=== PATIENT | female | born 1995 | race Caucasian/White ===

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

== ENCOUNTER 2017-02-04 22:30 | Emergency (ER) | payer SELFPAY ==
[2017-02-04 23:06] VITALS: BP 115/82; PULSE 97; TEMP 98.1; O2SAT 99
--- NOTE | 2017-02-05 00:04 | C.PDOC ---
History Of Present Illness Patient is a 21 y/o female who presents to the ED with a complaint of a rash since 8pm tonight. Patient states this morning she ate and developed a rash shortly after. It resolved with Benadryl. The rash returned later in the day after she ate again with no relief from Benadryl prompting ED visit. Patient admits to similar episode approximately 5 months ago; denies any new foods, detergent, SOB, throat swelling, or difficulty breathing. No other physical complaints at this time. Time Seen by Provider: 02/04/17 23:06 Chief Complaint (Nursing): Allergic Reaction History Per: Patient History/Exam Limitations: no limitations Onset/Duration Of Symptoms: Hrs (initial rash upon awakening; second outbreak at 8pm) Current Symptoms Are (Timing): Still Present Home/EMS Treatment: Benadryl (treated both outbreaks ) Recent travel outside of the [place]: No Additional History Per: Patient Past Medical History Reviewed: Historical Data, Nursing Documentation, Vital Signs Vital Signs: Last Vital Signs Temp 98.1 F 02/04/17 23:02 Pulse 97 H 02/04/17 23:02 Resp 20 02/05/17 00:22 BP 115/82 02/04/17 23:02 Pulse Ox 99 02/05/17 00:22 - Medical History PMH: No Chronic Diseases Surgical History: No Surg Hx Family History: States: Unknown Family Hx - Social History Hx Alcohol Use: No Hx Substance Use: No - Immunization History Hx Tetanus Toxoid Vaccination: No Hx Influenza Vaccination: No Hx Pneumococcal Vaccination: No Review Of Systems Constitutional: Negative for: Fever, Chills ENT: Negative for: Throat Swelling Respiratory: Positive for: Other (no difficulty breathing). Negative for: Shortness of Breath Genitourinary: Negative for: Frequency (tolerating own secretion) Skin: Positive for: Rash Neurological: Negative for: Change in Speech Physical Exam - Physical Exam Appears: Well, Non-toxic, No Acute Distress, Other (speakign in full sentences , tolerating secretions) Skin: Warm, Dry, Rash (urticaria to abdomen) Head: Atraumatic, Normacephalic Eye(s): bilateral: Normal Inspection, EOMI Ear(s): Bilateral: Normal Nose: Normal Oral Mucosa: Moist Tongue: Normal Appearing, No Swelling Lips: Normal Appearing, No Swelling Throat: Normal, No Erythema, No Exudate, No Drooling Neck: Normal ROM, Supple Chest: Symmetrical Cardiovascular: Rhythm Regular Respiratory: Normal Breath Sounds, No Accessory Muscle Use Back: Normal Inspection, No CVA Tenderness Neurological/Psych: Oriented x3, Normal Speech, Normal Cognition, Other (no focal deficits) ED Course And Treatment O2 Sat by Pulse Oximetry: 99 (room air) Pulse Ox Interpretation: Normal Progress Note: Plan: Solumedrol and Pepcid administered. On re-evaluation, Patient is resting comfortably, tolerating PO, has no shortness of breath, has no intra-oral swelling, no stridor. Patient notes that pruritus has improved and does not want additional benadryl. Patient was advised to avoid potential allergens, and to follow up with physician in 1-2 days. Disposition - Disposition Referrals: [facility] at [facility] [Outside] Disposition: HOME/ ROUTINE Disposition Time: 00:00 Condition: STABLE Additional Instructions: Follow up with your primary medical doctor or clinic in 2-5 days for further evaluation. Take medications as prescribed. Return to the emergency department at any time if symptoms persist or worsen. Prescriptions: DiphenhydrAMINE [Benadryl] 25 mg PO Q6 #20 cap predniSONE [Prednisone] 40 mg PO DAILY #8 tab Instructions: Urticaria (ED) Forms: [facility] ([place]) - Clinical Impression Clinical Impression: Urticaria - Scribe Statement The provider has reviewed the documentation as recorded by the Scribe Yessica Lake All medical record entries made by the Scribe were at my direction and personally dictated by me. I have reviewed the chart and agree that the record accurately reflects my personal performance of the history, physical exam, medical decision making, and the department course for this patient. I have also personally directed, reviewed, and agree with the discharge instructions and disposition.
--- NOTE | 2017-02-05 00:05 | C.PDOC ---
History Of Present Illness Patient is a 21 y/o female who presents to the ED with a complaint of a rash since 8pm tonight. Patient states she awoke this morning with a rash but resolved with Benadryl. The rash reformed later in the day with no relief from Benadryl once more. Patient admits to similar episode approximately 5 months ago ; denies any new foods, detergent, SOB, throat swelling, or difficulty breathing. No other physical complaints at this time. Time Seen by Provider: 02/04/17 23:06 Chief Complaint (Nursing): Allergic Reaction History Per: Patient History/Exam Limitations: no limitations Onset/Duration Of Symptoms: Hrs (initial rash formed this morning upon awakening ; second outbreak later in the day that persisted) Current Symptoms Are (Timing): Still Present Home/EMS Treatment: Benadryl (treated both outbreaks) Recent travel outside of the [place]: No Additional History Per: Patient Past Medical History Reviewed: Historical Data, Nursing Documentation, Vital Signs Vital Signs: Last Vital Signs Temp 98.1 F 02/04/17 23:02 Pulse 97 H 02/04/17 23:02 Resp 16 02/04/17 23:02 BP 115/82 02/04/17 23:02 Pulse Ox 99 02/04/17 23:02 - Medical History PMH: No Chronic Diseases Surgical History: No Surg Hx Family History: States: Unknown Family Hx - Social History Hx Alcohol Use: No Hx Substance Use: No - Immunization History Hx Tetanus Toxoid Vaccination: No Hx Influenza Vaccination: No Hx Pneumococcal Vaccination: No Review Of Systems Constitutional: Negative for: Fever, Chills Skin: Positive for: Rash (urticaria throughout abdomen) Neurological: Negative for: Change in Speech Physical Exam - Physical Exam Appears: Well, Non-toxic, No Acute Distress Skin: Rash (urticaria to abdomen ) Head: Atraumatic, Normacephalic Eye(s): bilateral: Normal Inspection, EOMI Nose: Normal Oral Mucosa: Moist Tongue: Normal Appearing Lips: Normal Appearing Throat: Normal Gastrointestinal/Abdominal: Other (urticaria) Neurological/Psych: Oriented x3, Normal Speech, Normal Cognition, Other (no focal deficits) ED Course And Treatment O2 Sat by Pulse Oximetry: 99 (room air) Pulse Ox Interpretation: Normal Progress Note: Plan: Solumedrol and Pepcid administered. Reassessment: discussed possible allergic reactions with patient and advised to follow up with vice president lending or clinic tomorrow. Disposition - Disposition - Scribe Statement The provider has reviewed the documentation as recorded by the Scribe Yessica Lake All medical record entries made by the Scribe were at my direction and personally dictated by me. I have reviewed the chart and agree that the record accurately reflects my personal performance of the history, physical exam, medical decision making, and the department course for this patient. I have also personally directed, reviewed, and agree with the discharge instructions and disposition.
[2017-02-05 00:23] VITALS: RESP 20
== END 2017-02-05 00:22 | disposition home or self-care (01) ==
LOC: C.ER 22:30
DX: L50.9 Urticaria, unspecified (principal)
CPT/HCPCS: 96372; 99284; J2930